=== PATIENT | male | born 1975 | race Two or more races ===

== ENCOUNTER 2022-05-21 10:20 | Outpatient (CLI) | payer OTHER | END 2022-05-21 10:25 | disposition home or self-care (01) | LOC: RAD 10:20 | PROVIDERS: ATTEND Orthopaedic Surgery | DX: S62.617A Displaced fracture of proximal phalanx of left little finger, initial encounter for closed fracture (principal) ==

== ENCOUNTER 2022-05-26 10:20 | Outpatient (CLI) | payer OTHER | END 2022-05-26 10:34 | disposition home or self-care (01) | LOC: RAD 10:20 | PROVIDERS: ATTEND Orthopaedic Surgery | DX: S62.617A Displaced fracture of proximal phalanx of left little finger, initial encounter for closed fracture (principal) ==

== ENCOUNTER 2022-06-09 08:13 | Outpatient (CLI) | payer OTHER | END 2022-06-09 08:16 | disposition home or self-care (01) | LOC: RAD 08:13 | PROVIDERS: ATTEND Orthopaedic Surgery | DX: S62.617A Displaced fracture of proximal phalanx of left little finger, initial encounter for closed fracture (principal) ==